=== PATIENT | male | born 1965 | race Caucasian/White ===

== ENCOUNTER 2017-03-30 23:38 | Emergency (ER) | payer MEDICAID, OTHER ==
[2017-03-30 23:46] VITALS: BMI 34.8
[2017-03-30 23:53] VITALS: TEMP 98.7
[2017-03-31] MEDS ORDERED: Nitroglycerin 2% Ointment Foilpak UD TOP STA (00:11)
[2017-03-31 00:20] LABS: BASO # 0.02 K/mm3 (0.0-2.0); BASO % 0.2 % (0.0-3.0); EOS % 0.1 % (1.5-5.0); GRAN # 7.94 (1.4-6.5); GRAN % 86.2 % (50.0-68.0); HEMATOCRIT 44.1 % (42.0-52.0); LYMPH # 1.1 (1.2-3.4); LYMPH % 12.1 % (22.0-35.0); MEAN CELL VOLUME 92.3 fl (80.0-105.0); MEAN CORPUSCULAR HEMOGLOBIN 31.8 pg (25.0-35.0); MEAN CORPUSCULAR HGB CONC 34.5 g/dl (31.0-37.0); MEAN PLATELET VOLUME 12.2 fl (7.0-11.0); MONO # 0.1 (0.1-0.6); MONO % 1.4 % (1.0-6.0); RED CELL DISTRIBUTION WIDTH 12.6 % (11.5-14.5); WHITE BLOOD COUNT 9.2 10^3/ul (4.5-11.0)
--- NOTE | 2017-03-31 00:24 | ED PDOC ---
Arrival/HPI - General Chief Complaint: Chest Pain Time Seen by Provider: 03/30/17 23:41 Historian: Patient - History of Present Illness Narrative History of Present Illness (Text): 03/31/17 00:23 A 51 year old male presents to the emergency department complaining of chest pain that started two hours ago. Patient reports he saw his PMD who gave him an injection to help him with breathing, unsure what injection. Patient denies any shortness of breath, nausea, vomiting, diarrhea or any other complaints at this time. Time/Duration: 1-3 hours Symptom Onset: Sudden Symptom Course: Unchanged Activities at Onset: Rest Context: Home Past Medical History - Provider Review Nursing Documentation Reviewed: Yes - Infectious Disease Hx of Infectious Diseases: None - Cardiac Hx Hypertension: Yes - Pulmonary Hx Respiratory Disorders: No - Neurological Hx Neurological Disorder: No - HEENT Hx HEENT Disorder: No - Renal Hx Renal Disorder: No - Endocrine/Metabolic Hx Diabetes Mellitus Type 2: Yes - Hematological/Oncological Hx Blood Disorders: No - Integumentary Hx Dermatological Disorder: No - Musculoskeletal/Rheumatological Hx Musculoskeletal Disorders: No - Gastrointestinal Hx Gastrointestinal Disorders: No - Genitourinary/Gynecological Hx Genitourinary Disorders: No - Psychiatric Hx Psychophysiologic Disorder: No Hx Substance Use: No - Anesthesia Hx Anesthesia: No Hx Anesthesia Reactions: No Hx Malignant Hyperthermia: No Family/Social History - Physician Review Nursing Documentation Reviewed: Yes Family/Social History: No Known Family HX Smoking Status: Heavy Smoker > 10 Cigarettes Daily Hx Alcohol Use: No Hx Substance Use: No Allergies/Home Meds Allergies/Adverse Reactions: Allergies No Known Allergies Allergy (Verified 12/11/15 21:20) Home Medications: Home Meds Medication Instructions Recorded Confirmed Albuterol/Ipratropium [Combivent 1 puff IH Q6 03/30/17 03/31/17 Respimat] Aspirin [Adult Low Dose Aspirin EC] 81 mg PO DAILY 03/30/17 03/30/17 Cholecalciferol (Vitamin D3) 50,000 unit PO QWK 03/30/17 03/30/17 [Vitamin D3] Fluticasone Propionate [Flovent 50 mcg IH DAILY 03/30/17 03/31/17 Diskus] Ibuprofen [Caldolor] 400 mg PO TID PRN 03/30/17 03/31/17 Losartan/Hydrochlorothiazide 1 each PO DAILY 03/30/17 03/30/17 [Losartan-Hctz 100-25 mg Tab] Metformin ER [Glucophage XR] 500 mg PO DAILY 03/30/17 03/30/17 Simvastatin [Zocor] 40 mg PO HS 03/30/17 03/30/17 amLODIPine [Norvasc] 5 mg PO DAILY 03/30/17 03/30/17 Review of Systems - Physician Review All systems were reviewed & negative as marked: Yes - Review of Systems Respiratory: absent: SOB Cardiovascular: Chest Pain Gastrointestinal: absent: Diarrhea, Nausea, Vomiting Physical Exam Vital Signs Reviewed: Yes Vital Signs Temp Pulse Resp BP Pulse Ox 03/31/17 01:14 108 H 18 115/63 98 03/30/17 23:49 98.7 F 118 H 19 131/75 97 Temperature: Afebrile Blood Pressure: Normal Pulse: Tachycardic Respiratory Rate: Normal Appearance: Positive for: Well-Appearing, Non-Toxic, Comfortable Pain Distress: None Mental Status: Positive for: Alert and Oriented X 3 - Systems Exam Head: Present: Atraumatic, Normocephalic Pupils: Present: PERRL Extroacular Muscles: Present: EOMI Conjunctiva: Present: Normal Mouth: Present: Moist Mucous Membranes Neck: Present: Normal Range of Motion Respiratory/Chest: Present: Clear to Auscultation, Good Air Exchange. No: Respiratory Distress, Accessory Muscle Use Cardiovascular: Present: Tachycardic Abdomen: Present: Normal Bowel Sounds. No: Tenderness, Distention, Peritoneal Signs Back: Present: Normal Inspection Upper Extremity: Present: Normal Inspection. No: Cyanosis, Edema Lower Extremity: Present: Normal Inspection. No: Edema Neurological: Present: GCS=15, CN II-XII Intact, Speech Normal Skin: Present: Warm, Dry, Normal Color. No: Rashes Psychiatric: Present: Alert, Oriented x 3, Normal Insight, Normal Concentration Medical Decision Making ED Course and Treatment: 03/31/17 00:22 Impression: A 51 year old male with chest pain. Differential Diagnosis included but are not limited to: r/o PE Plan: -- EKG -- chest xray -- labs -- Urinalysis -- Nitroglycerin, Aspirin, IV fluids -- Reassess and disposition Prior Visits: Notes and results from previous visits were reviewed. Patient was last seen in the emergency department on 12/11/15 for evaluation of left lateral ankle pain and swelling. Progress Notes: EKG: Ordered, reviewed, and independently interpreted the EKG. Rate : 115 BPM Rhythm : sinus tachycardia Interpretation : normal intervals. Comparison : No previous EKG for comparison. 03/31/17 02:30 Chest xray: No active disease, as read by me. Patient was seen by the medical appointment scheduler for admission, and during interview and exam, patient wanted to leave against medical advice and refused admission. Leaving Against Medical Advice (AMA): The patient is choosing to leave against medical advice. I have personally explained to the patient that choosing to do so may result in permanent bodily harm or . I have discussed at great length that without further evaluation and monitoring there may be unforeseen circumstances and/or deterioration causing permanent bodily harm or as a result of their choice. The patient is alert, oriented, and shows the mental capacity to make clear decisions regarding the patients health care at this time. The patient continues to wish to leave against medical advice. The patient has been advised that they should return to the emergency room immediately if they change their mind at any time, or if their condition begins to change or worsen in any way. - Lab Interpretations Lab Results: 03/31/17 00:08 03/31/17 00:08 Lab Results 03/31/17 00:08: PT 11.7, INR 1.07, APTT 32.9, D-Dimer, Quantitative < 200 03/31/17 00:08: Sodium 136, Potassium 3.4 L, Chloride 97 L, Carbon Dioxide 25, Anion Gap 17, BUN 21, Creatinine 1.1, Est GFR ( Amer) > 60, Est GFR (Non- Af Amer) > 60, Random Glucose 453 H*, Calcium 9.8, Magnesium 1.4 L, Total Bilirubin 0.8, AST 47, ALT 81 H, Alkaline Phosphatase 103, Lactate Dehydrogenase 509, Total Creatine Kinase 83, Troponin I < 0.01, Total Protein 8.0, Albumin 4.4, Globulin 3.6, Albumin/Globulin Ratio 1.2 03/31/17 00:08: WBC 9.2, RBC 4.78, Hgb 15.2, Hct 44.1, MCV 92.3, MCH 31.8, MCHC 34.5, RDW 12.6, Plt Count 178, MPV 12.2 H, Gran % 86.2 H, Lymph % (Auto) 12.1 L , [place] % (Auto) 1.4, Eos % (Auto) 0.1 L, Baso % (Auto) 0.2, Gran # 7.94 H, Lymph # 1.1 L, [place] # 0.1, Eos # 0.0, Baso # 0.02 I have reviewed the lab results: Yes - RAD Interpretation Radiology Orders: 03/31/17 00:13 CHEST PORTABLE [RAD] Stat - EKG Interpretation Interpreted by ED Physician: Yes Type: 12 lead EKG - Medication Orders Current Medication Orders: Discontinued Medications Aspirin (Ecotrin) 81 mg PO STAT STA Stop: 03/31/17 00:12 Last Admin: 03/31/17 00:23 Dose: Sodium Chloride (Sodium Chloride 0.9%) 1,000 mls @ 250 mls/hr IV .Q4H INGRID Last Admin: 03/31/17 00:43 Dose: 250 mls/hr eMAR Start Stop Document 03/31/17 00:43 AD (Rec: 03/31/17 00:43 AD [facility] [id number]) Intravenous Solution Start Date 03/31/17 Start Time 00:45 Nitroglycerin (Nitro-Bid 2% Oint) 1 ea TOP STAT STA Stop: 03/31/17 00:12 Last Admin: 03/31/17 00:23 Dose: 1 ea - Scribe Statement The provider has reviewed the documentation as recorded by the Latha Hagen Provider Scribe Attestation: All medical record entries made by the Scribe were at my direction and personally dictated by me. I have reviewed the chart and agree that the record accurately reflects my personal performance of the history, physical exam, medical decision making, and the department course for this patient. I have also personally directed, reviewed, and agree with the discharge instructions and disposition. Disposition/Present on Arrival - Present on Arrival Any Indicators Present on Arrival: No History of DVT/PE: No History of Uncontrolled Diabetes: No Urinary Catheter: No History of Decub. Ulcer: No History Surgical Site Infection Following: None - Disposition Have Diagnosis and Disposition been Completed?: Yes Diagnosis: Chest pain Disposition: AGAINST MEDICAL ADVICE Disposition Time: 02:30 Condition: GOOD Discharge Instructions (ExitCare): Chest Pain (ED) Referrals: Petar Vincent MD [Primary Care Provider] - Follow up with primary Forms: [employer] ([place]izen [place])
[2017-03-31 00:35] LABS: GLUCOSE,RANDOM 453 mg/dL (70-110)
[2017-03-31 00:36] LABS: ALB/GLOB RATIO 1.2 (1.1-1.8); ALKALINE PHOSPHATASE 103 U/L (38-126); ALT/SGPT 81 U/L (7-56); AST/SGOT 47 U/L (17-59); BILIRUBIN,TOTAL 0.8 mg/dL (0.2-1.3); BLOOD UREA NITROGEN 21 mg/dL (7-21); CALCIUM 9.8 mg/dL (8.4-10.5); CARBON DIOXIDE 25 mmol/L (21-33); CHLORIDE 97 mmol/L (98-107); GFR AFRICAN-AMERICAN > 60; MAGNESIUM 1.4 mg/dL (1.7-2.2); POTASSIUM 3.4 mmol/L (3.6-5.0); SODIUM 136 mmol/L (132-148)
[2017-03-31 00:41] LABS: TROPONIN I < 0.01 ng/mL
[2017-03-31 00:43] LABS: INR 1.07 (0.93-1.08)
[2017-03-31 00:44] LABS: D DIMER < 200 ng/mL (0-243); PARTIAL THROMBOPLASTIN TIME 32.9 Seconds (25.1-36.5)
[2017-03-31] MEDS ORDERED: Sodium Chloride 0.9% 1,000 ML IV SCH (00:45)
[2017-03-31 01:15] VITALS: BP 115/63; PULSE 108; RESP 18; O2SAT 98
--- NOTE | 2017-03-31 01:54 | CP.PCM.HP ---
History of Present Illness - History of Present Illness History of Present Illness: CC: chest pain Subjective: HPI: Patient is a 51 year old male with past medical history of who presents to the emergency department via EMS for evaluation and treatment of Patient denies specific provoking events. Denies recent travel and sick contacts. Patient denies intractable headache, fever, chills, dizziness, blurry vision, ringing in the ears, chest pain, shortness of breath, abdominal pain, nausea, vomiting, diarrhea, constipation, and urinary symptoms. ROS: 12 point review of systems negative except as indicated in HPI PMHx: PSHx: Family Hx: Social Hx: ETOH use, tobacco use, illicit drug use Medications: Please see medication reconciliation PMD: Pharmacy: Physical Examination: - Constitutional Appears: Non-toxic, No Acute Distress - Head Exam Head Exam: atraumatic, normocephalic - Eye Exam Eye Exam: Normal appearance, PERRL. absent: Scleral icterus - ENT Exam ENT Exam: Mucous Membranes Moist - Neck Exam Neck exam: Normal Inspection - Respiratory Exam Respiratory Exam: Normal Breathing Pattern - Cardiovascular Exam Cardiovascular Exam: +S1, +S2. absent: Gallop, JVD - GI/Abdominal Exam GI & Abdominal Exam: Normal Bowel Sounds, absent: Distended, Guarding, Pulsatile Mass, Rebound, Rigid - Extremities Exam Extremities exam: Negative for: calf tenderness - Neurological Exam Neurological exam: Patient is awake, alert, responds to verbal stimuli, answers questions appropriately, follows commands, and moves extremities past midline - Psychiatric Exam Psychiatric exam: Normal Affect, Normal Mood - Skin Skin Exam: warm and dry Assessment and Plan: Chest Pain - rule out ACS - EKG reviewed and appreciated - - cardiac enzymes q8h x 3, first troponins negative - lipid profile and A1C pending - consider cardiology consult pending patient's clinical course SIRS Criteria Met - not sepsis- no source - blood cultures x 2 - urine culture - IVF NS @ 75 - abx prophylactically Sepsis - greater than 2/4 SIRS criteria met in setting of infectious source - blood cultures x 2 - urine culture - IVF NS @ 75 - abx Acute on Chronic COPD Exacerbation - duobnebs q4 scheduled - solumedrol 40mg IV q12 - oxygen supplementation 2 L via NC - consider pulmonology consult pending clinical course - antibtiotics - abg reviewed and appreciated, repeat abg in AM Pneumonia - blood culture, sputum culture - consider pulmonology consult pending clinical course - antibtiotics - consider repeating CXR/ attaining chest CT pending patient clinical course Acute on Chronic CHF Exacerbation - HR and BP reviewed, trended, and appreciated - strict i and o - daily weight - lasix 40mg IV q12 - ECHO pending - previous ECHO reviewed and appreciated - consider repeating CXR/ attaining chest CT pending patient clinical course Atrial Fibrillation - HR and BP reviewed, trended, and appreciated - EKG reviewed and appreciated - rate control with - [id number] > 2 hence anticoagulation with - cardiac isoenzymes q8 x 3 - cardiology consulted- appreciate recommendations - consider cardiology consult pending patients clinical course Ethanol Abuse, Potential Withdrawal - CIWA - high risk fall precautions - ativan 1mg q6 prn withdrawl symptoms - consider adding librium or geodon if sxs are not controlled - multivitamin, thiamine, and folate supplement Elevated LFTs - avoid hepatotoxins - monitor closely via CMP - hepatits panel pending - HIV rapid screen pending UTI - blood cultures and urine cultures pending - c/w antibiotics GI Bleed - NPO - 2 large bore PIV - protonix 40 IV q12 - type and screen if transfusion is required - GI consulted- appreciate recommendations Nausea/Vomitting - zofran - IVF NS @ 75 - NPO Diarrhea, Colitis - probiotic - antibiotic - IVF NS @ 75 STEPHEN - creatinine and Bun reviewed, trended, and appreciated - avoid nephrotoxins - continue IVF NS @ 75 - consider nephrology consult pending patients clinical course STEPHEN on CKD - creatinine and Bun reviewed, trended, and appreciated - avoid nephrotoxins - continue IVF NS @ 75 - consider nephrology consult pending patients clinical course CKD on HD - creatinine and Bun reviewed, trended, and appreciated - avoid nephrotoxins - renal diet - nephrology consulted for management of HD Anemia - Hgb reviewed, trended, and appreciated - monitor closely via CBC - consider iron, tibc, ferritin, peripheral smear pending patients clinical course Electrolyte Abnormality - repleted and monitor closely via CMP Hx of CAD - c/w aspirin - c/w statin Hx of Htn - c/w - hydralazine 5mg IV q6 prn SBP > 180, holding parameters- do not administer if HR is > 100 bpm Hx of Hyperlipidemia - c/w statin - lipid profile pending Hx of Diabetes - hold home diabetic medications - fingersticks ACHS - insulin sliding scale- lispro medium - resume diet as carb consistent Tobacco Abuse - nicotine patch offered - smoking cessation advised - patient education provided on dangers of tobacco abuse Prophylaxis - DVT ppx- subq heparin as per ayo score - GI ppx- famotidine Patient case discussed with and plan approved by attending physician. 03/31/17 01:54 Past Patient History - Infectious Disease Hx of Infectious Diseases: None - Past Social History Smoking Status: Heavy Smoker > 10 Cigarettes Daily - CARDIAC Hx Hypertension: Yes - PULMONARY Hx Respiratory Disorders: No - NEUROLOGICAL Hx Neurological Disorder: No - HEENT Hx HEENT Problems: No - RENAL Hx Chronic Kidney Disease: No - ENDOCRINE/METABOLIC Hx Diabetes Mellitus Type 2: Yes - HEMATOLOGICAL/ONCOLOGICAL Hx Blood Disorders: No - INTEGUMENTARY Hx Dermatological Problems: No - MUSCULOSKELETAL/RHEUMATOLOGICAL Hx Musculoskeletal Disorders: No - GASTROINTESTINAL Hx Gastrointestinal Disorders: No - GENITOURINARY/GYNECOLOGICAL Hx Genitourinary Disorders: No - PSYCHIATRIC Hx Psychophysiologic Disorder: No Hx Substance Use: No - SURGICAL HISTORY Hx Surgeries: No - ANESTHESIA Hx Anesthesia: No Hx Anesthesia Reactions: No Hx Malignant Hyperthermia: No Meds Allergies/Adverse Reactions: Allergies Allergy/AdvReac Type Severity Reaction Status Date / Time No Known Allergies Allergy Verified 12/11/15 21:20 Results - Vital Signs Recent Vital Signs: Last Vital Signs Temp 98.7 F 03/30/17 23:49 Pulse 108 H 03/31/17 01:14 Resp 18 03/31/17 01:14 BP 115/63 03/31/17 01:14 Pulse Ox 98 03/31/17 01:14 - Labs Result Diagrams: 03/31/17 00:08 03/31/17 00:08 Labs: Laboratory Results - last 24 hr 03/31/17 03/31/17 03/31/17 00:08 00:08 00:08 WBC 9.2 RBC 4.78 Hgb 15.2 Hct 44.1 MCV 92.3 MCH 31.8 MCHC 34.5 RDW 12.6 Plt Count 178 MPV 12.2 H Gran % 86.2 H Lymph % (Auto) 12.1 L [place] % (Auto) 1.4 Eos % (Auto) 0.1 L Baso % (Auto) 0.2 Gran # 7.94 H Lymph # 1.1 L [place] # 0.1 Eos # 0.0 Baso # 0.02 PT 11.7 INR 1.07 APTT 32.9 D-Dimer, Quantitative < 200 Sodium 136 Potassium 3.4 L Chloride 97 L Carbon Dioxide 25 Anion Gap 17 BUN 21 Creatinine 1.1 Est GFR ( Amer) > 60 Est GFR (Non-Af Amer) > 60 Random Glucose 453 H* Calcium 9.8 Magnesium 1.4 L Total Bilirubin 0.8 AST 47 ALT 81 H Alkaline Phosphatase 103 Lactate Dehydrogenase 509 Total Creatine Kinase 83 Troponin I < 0.01 Total Protein 8.0 Albumin 4.4 Globulin 3.6 Albumin/Globulin Ratio 1.2
--- NOTE | 2017-03-31 08:03 | RAD ---
HISTORY: cp COMPARISON: No prior. FINDINGS: LUNGS: No active pulmonary disease. PLEURA: No significant pleural effusion identified, no pneumothorax apparent. CARDIOVASCULAR: Normal. OSSEOUS STRUCTURES: No significant abnormalities. VISUALIZED UPPER ABDOMEN: Normal. OTHER FINDINGS: None. IMPRESSION: No active disease.
--- NOTE | 2017-03-31 09:52 | CARD ---
APPROVED REPORT EKG Measurement Heart [id number] <Conclusion> Sinus tachycardia Possible Left atrial enlargement ST abnormality, possible digitalis effect Abnormal ECG
== END 2017-03-31 02:30 | disposition left against medical advice (07) ==
LOC: ED 23:38
DX: R07.9 Chest pain, unspecified (principal); I10 Essential (primary) hypertension; E11.9 Type 2 diabetes mellitus without complications; F17.210 Nicotine dependence, cigarettes, uncomplicated
CPT/HCPCS: 71010; 80053; 82550; 83615; 83735; 84484; 85025; 85378; 85610; 85730; 93005; 99284; J7040

== ENCOUNTER 2018-02-06 08:27 | Emergency (ER) | payer OTHER ==
[2018-02-06 09:24] VITALS: BMI 34.0
[2018-02-06 09:49] VITALS: TEMP 98.3
--- NOTE | 2018-02-06 10:29 | ED PDOC ---
Arrival/HPI - History of Present Illness Narrative History of Present Illness (Text): 02/06/18 10:22 Pt is a 52 yo M with pmhx of HTN, HLD, and DMII who presents for a foreign body in the eye. He states that he was working with some metal yesterday when he got a particle in his L eye. He states that he vigorously irrigated the eye, and put in eye drops last night. He denies wearing any safety glasses when working with the metal. He denies any changes in vision, but does admit to eye irritation and pain. He states that he feels as if something is still in his eye. He also admits to photophobia and L sided headache. He denies wearing contacts, seeing floaters, or loss of vision. Pmhx: HLD, HTN, DMII Pshx: B/l cataract surgery 2016 All: NKDA Soc: 2ppd for 30 years, social etoh use, denies any illicit drug use Fam Hx: Denies Time/Duration: < week Symptom Onset: Sudden Symptom Course: Worsening Severity Level: 6 <Kasie Feliz - Last Filed: 02/06/18 10:55> <Praveen Kaufman - Last Filed: 02/06/18 12:22> - General Time Seen by Provider: 02/06/18 08:45 Past Medical History - Provider Review Nursing Documentation Reviewed: Yes - Infectious Disease Hx of Infectious Diseases: None - Cardiac Hx Hypertension: Yes - Pulmonary Hx Respiratory Disorders: No - Neurological Hx Neurological Disorder: No - HEENT Hx HEENT Disorder: No - Renal Hx Renal Disorder: No - Endocrine/Metabolic Hx Diabetes Mellitus Type 2: Yes - Hematological/Oncological Hx Blood Disorders: No - Integumentary Hx Dermatological Disorder: No - Musculoskeletal/Rheumatological Hx Musculoskeletal Disorders: No - Gastrointestinal Hx Gastrointestinal Disorders: No - Genitourinary/Gynecological Hx Genitourinary Disorders: No - Psychiatric Hx Psychophysiologic Disorder: No Hx Substance Use: No - Surgical History Hx Eye Surgery: Yes (changed lenses) - Anesthesia Hx Anesthesia: Yes Hx Anesthesia Reactions: No Hx Malignant Hyperthermia: No <Kasie Feliz - Last Filed: 02/06/18 10:55> Family/Social History - Physician Review Nursing Documentation Reviewed: Yes Family/Social History: No Known Family HX Smoking Status: Heavy Smoker > 10 Cigarettes Daily Hx Alcohol Use: No Hx Substance Use: No <Kasie Feliz - Last Filed: 02/06/18 10:55> Allergies/Home Meds <Kasie Feliz - Last Filed: 02/06/18 10:55> <Praveen Kaufman - Last Filed: 02/06/18 12:22> Allergies/Adverse Reactions: Allergies No Known Allergies Allergy (Verified 12/11/15 21:20) Home Medications: Home Meds Medication Instructions Recorded Confirmed Albuterol/Ipratropium [Combivent 1 puff IH Q6 03/30/17 03/31/17 Respimat] Aspirin [Adult Low Dose Aspirin EC] 81 mg PO DAILY 03/30/17 03/30/17 Cholecalciferol (Vitamin D3) 50,000 unit PO QWK 03/30/17 03/30/17 [Vitamin D3] Fluticasone Propionate [Flovent 50 mcg IH DAILY 03/30/17 03/31/17 Diskus] Ibuprofen [Caldolor] 400 mg PO TID PRN 03/30/17 03/31/17 Losartan/Hydrochlorothiazide 1 each PO DAILY 03/30/17 03/30/17 [Losartan-Hctz 100-25 mg Tab] MetFORMIN ER [Glucophage XR] 500 mg PO DAILY 03/30/17 03/30/17 Simvastatin [Zocor] 40 mg PO HS 03/30/17 03/30/17 amLODIPine [Norvasc] 5 mg PO DAILY 03/30/17 03/30/17 Review of Systems - Physician Review All systems were reviewed & negative as marked: Yes - Review of Systems Eyes: Photophobia (L sided). absent: Vision Changes, Eye Pain Respiratory: absent: SOB, Cough Cardiovascular: absent: Chest Pain, Palpitations Gastrointestinal: absent: Abdominal Pain, Nausea, Vomiting Neurological: Headache (L sided headache) <Kasie Feliz - Last Filed: 02/06/18 10:55> Physical Exam Vital Signs Reviewed: Yes Vital Signs Temp Pulse Resp BP Pulse Ox 02/06/18 09:48 98.3 F 91 H 18 106/62 96 Temperature: Afebrile Blood Pressure: Normal Pulse: Regular Respiratory Rate: Normal Appearance: Positive for: Well-Appearing, Non-Toxic Pain Distress: Mild Mental Status: Positive for: Alert and Oriented X 3 - Systems Exam Head: Present: Atraumatic, Normocephalic Pupils: Present: PERRL Extroacular Muscles: Present: EOMI. No: Gaze Palsy, Entrapment Conjunctiva: Present: Injected, Other (fluorescein slit lamp test performed, no corneal abrasions noted on exam. Upper and lower eye lid were also examined for the presence of any foreign body and none were seen.). No: Icteric Respiratory/Chest: Present: Clear to Auscultation, Good Air Exchange. No: Respiratory Distress, Accessory Muscle Use, Wheezes, Rales, Rhonchi Cardiovascular: Present: Regular Rate and Rhythm, Normal S1, S2. No: Murmurs, Rub, Gallop Abdomen: Present: Normal Bowel Sounds. No: Tenderness, Distention, Peritoneal Signs, Rebound, Guarding Lower Extremity: Present: Normal Inspection, NORMAL PULSES, Capillary Refill < 2 s. No: Edema, CALF TENDERNESS, Autumn's Sign, Tenderness Neurological: Present: GCS=15, Speech Normal, Motor Func Grossly Intact, Normal Sensory Function Skin: Present: Warm, Dry, Normal Color. No: Rashes Psychiatric: Present: Alert, Oriented x 3, Normal Insight, Normal Concentration, Normal Affect, Normal Mood <Kasie Feliz - Last Filed: 02/06/18 10:55> Vital Signs Temp Pulse Resp BP Pulse Ox 02/06/18 10:37 88 16 110/70 99 02/06/18 09:48 98.3 F 91 H 18 106/62 96 <Praveen Kaufman - Last Filed: 02/06/18 12:22> Medical Decision Making ED Course and Treatment: 02/06/18 10:54 Pt is a 52 yo M with pmhx detailed above who presents for foreign body in L eye. - Tetracaine eye drops - Fluorescein slit lamp test - Call Opthomalogy 02/06/18 10:59 - Spoke to defence intelligence analyst who recommended patient to come to his office - Fluorescein slit lamp test was preformed and no abrasions noted on exam - Discussed with pt that defence intelligence analyst recommended immediate follow up in his office and to go straight from ED to ophthalmology office <Kasie Feliz - Last Filed: 02/06/18 10:55> ED Course and Treatment: 02/06/18 11:06 52 year old male presents to the Emergency department complaining of irritation to left eye secondary to possible foreign body. No abx at this time per ophtho, to be seen in the office. No appreciable foreign body on my exam. No retinal tear on my exam. No indication of glaucoma: No cloudy or hazy eye, no fixed pupil. Normal vision, 20/20 b/l. No trauma to orbit or proptosis to eye. No corneal ulcer. No hyphema or pus to anterior chamber. To be seen by ophtho. In agreement with resident note which contains more details about the patient. Patient seen and evaluated with resident. Came up with plan and treatment together. <Praveen Kaufman - Last Filed: 02/06/18 12:22> - PA / ACID BLEACHER / Resident Statement / has reviewed & agrees with the documentation as recorded. MD/ has examined the patient and agrees with the treatment plan. - Scribe Statement The provider has reviewed the documentation as recorded by the Scribe Giselle Haddad. All medical record entries made by the Scribe were at my direction and personally dictated by me. I have reviewed the chart and agree that the record accurately reflects my personal performance of the history, physical exam, medical decision making, and the department course for this patient. I have also personally directed, reviewed, and agree with the discharge instructions and disposition. <Praveen Kaufman - Last Filed: 02/06/18 12:22> Disposition/Present on Arrival - Present on Arrival Any Indicators Present on Arrival: No History of DVT/PE: No History of Uncontrolled Diabetes: No Urinary Catheter: No History of Decub. Ulcer: No History Surgical Site Infection Following: None - Disposition Have Diagnosis and Disposition been Completed?: Yes Disposition Time: 10:50 Patient Plan: Discharge (with immediate follow up with defence intelligence analyst as discussed with pt) <Kasie Feliz - Last Filed: 02/06/18 10:55> <Praveen Kaufman - Last Filed: 02/06/18 12:22> - Disposition Diagnosis: Foreign body in eye Disposition: HOME/ ROUTINE Condition: STABLE Discharge Instructions (ExitCare): Foreign Body in Eye Additional Instructions: - Please follow up with defence intelligence analyst Dr. Chua who will see you in his office today as soon as you are discharged. The office is located at [address] [place] [address], [facility]. - If any of your symptoms worsen before or after the appointment, or if any new symptoms begin please return to the Emergency Department. Referrals: Sebastian Chua MD [Staff Provider] - Follow up with primary Forms: [employer] (Vincentian)
[2018-02-06 10:38] VITALS: BP 110/70; PULSE 88; RESP 16; O2SAT 99
== END 2018-02-06 10:38 | disposition home or self-care (01) ==
LOC: ED 08:27
DX: T15.92XA Foreign body on external eye, part unspecified, left eye, initial encounter (principal); X58.XXXA Exposure to other specified factors, initial encounter; Y92.9 Unspecified place or not applicable

== ENCOUNTER 2018-09-17 11:02 | Emergency (ER) | payer OTHER ==
[2018-09-17 11:03] VITALS: BMI 33.6
[2018-09-17] MEDS ORDERED: Sodium Chloride 0.9% 1,000 ML IV STA (12:05)
[2018-09-17] MEDS ORDERED: Piperacill/Tazo 4.5gm in NS 4.5 GM/100 ML BAG IVPB STA (12:07)
--- NOTE | 2018-09-17 12:13 | ED PDOC ---
Arrival/HPI - General Chief Complaint: Headache Time Seen by Provider: 09/17/18 11:25 Historian: Patient - History of Present Illness Narrative History of Present Illness (Text): 09/17/18 12:05 53 year old male, with past medical history of diabetes, hypertension, and hyperlipidemia presents to emergency department for left-sided facial pain and swelling that began three days ago. Patient reports it initially began as swelling under his eyebrow but spread to the side of the face and under the eye this morning. He describes the pain as constant. He notes no difficulty moving his neck or opening and closing the jaw. Patient also states usual glucose levels are in the 140s. Patient denies any fevers, chills, shortness of breath, chest pain, abdominal pain, or any other complaints. Denies any recent travel and notes up to date immunizations. PMD: Time/Duration: Other (3 days ) Symptom Onset: Gradual Symptom Course: Unchanged Activities at Onset: Light Context: Home Past Medical History - Provider Review Nursing Documentation Reviewed: Yes - Infectious Disease Hx of Infectious Diseases: None - Cardiac Hx Cardiac Disorders: Yes Hx Hypertension: Yes - Pulmonary Hx Respiratory Disorders: No - Neurological Hx Neurological Disorder: No - HEENT Hx HEENT Disorder: Yes Hx Blind: Yes - Renal Hx Renal Disorder: No - Endocrine/Metabolic Hx Endocrine Disorders: Yes Hx Diabetes Mellitus Type 2: Yes - Hematological/Oncological Hx Blood Disorders: No - Integumentary Hx Dermatological Disorder: No - Musculoskeletal/Rheumatological Hx Musculoskeletal Disorders: No - Gastrointestinal Hx Gastrointestinal Disorders: No - Genitourinary/Gynecological Hx Genitourinary Disorders: No - Psychiatric Hx Psychophysiologic Disorder: No Hx Substance Use: No - Surgical History Hx Cataract Extraction: Yes Hx Eye Surgery: Yes (changed lenses) Hx Tonsillectomy: Yes - Anesthesia Hx Anesthesia: Yes Hx Anesthesia Reactions: No Hx Malignant Hyperthermia: No Family/Social History - Physician Review Nursing Documentation Reviewed: Yes Family/Social History: No Known Family HX Smoking Status: Current Some Days Smoker Hx Alcohol Use: No Hx Substance Use: No Allergies/Home Meds Allergies/Adverse Reactions: Allergies No Known Allergies Allergy (Verified 12/11/15 21:20) Home Medications: Home Meds Medication Instructions Recorded Confirmed Aspirin [Adult Low Dose Aspirin EC] 81 mg PO DAILY 03/30/17 03/08/18 Cholecalciferol (Vitamin D3) 50,000 unit PO QWK 03/30/17 03/08/18 [Vitamin D3] MetFORMIN ER [Glucophage XR] 500 mg PO DAILY 03/30/17 03/08/18 Simvastatin [Zocor] 40 mg PO HS 03/30/17 03/08/18 amLODIPine [Norvasc] 5 mg PO DAILY 03/30/17 09/17/18 Cyclobenzaprine [Flexeril] 5 mg PO DAILY 09/17/18 09/17/18 Lisinopril [Prinivil] 5 mg PO DAILY 09/17/18 09/17/18 Review of Systems - Physician Review All systems were reviewed & negative as marked: Yes - Review of Systems Respiratory: absent: SOB Cardiovascular: absent: Chest Pain Physical Exam - Physical Exam Narrative Physical Exam (Text): 09/17/18 12:15 Constitutional: No acute distress. Head: Normocephalic. Atraumatic. Eyes: EOMI without pain, edema to left eyebrow and periorbital ENT: Moist mucous membranes, tenderness and erythema to left parotid area Neck: Supple. Cardiovascular: Regular rate. Chest: No tenderness. Respiratory: Clear to auscultation bilaterally. GI: Soft. Nontender. Nondistended. Back: No CVA tenderness. Musculoskeletal: No tenderness or swelling of extremities. Skin: No rash. Neurologic: Alert, no focal deficit. Vital Signs Reviewed: Yes Vital Signs Temp Pulse Resp BP Pulse Ox 09/17/18 11:18 98.0 F 91 H 18 115/77 98 Temperature: Afebrile Blood Pressure: Normal Pulse: Regular Respiratory Rate: Normal Appearance: Positive for: Well-Appearing, Non-Toxic, Comfortable Pain Distress: None Mental Status: Positive for: Alert and Oriented X 3 Medical Decision Making ED Course and Treatment: 09/17/18 12:13 Impression: 53 year old male presents to emergency department for left-sided facial swelling that began three days ago. Plan: -- CT Maxillofacial -- Labs -- IV Fluids -- Zosyn -- Urinalysis -- Reassess and disposition 09/17/18 16:46 FINDINGS: NASAL BONES: Unremarkable. ORBITS: Focal trace left supraorbital soft tissue swelling. PARANASAL SINUSES/ MASTOIDS: Clear. MAXILLA: Unremarkable. MANDIBLE/ TEMPOROMANDIBULAR JOINTS: Unremarkable. SKULL BASE: Unremarkable. TEMPORAL BONES: Middle ears and mastoid grossly unremarkable. OTHER FINDINGS: None. IMPRESSION: Unremarkable contrast enhanced CT of the maxillofacial bones. Patient in no distress. Discharged home, f/u PMD, instructed to return to ED for worsening pain, fever, vomiting, stiff neck, chills, worsening edema, or any other problem. - Scribe Statement The provider has reviewed the documentation as recorded by the Scribe Kandi Montoya All medical record entries made by the Scribe were at my direction and personally dictated by me. I have reviewed the chart and agree that the record accurately reflects my personal performance of the history, physical exam, medical decision making, and the department course for this patient. I have also personally directed, reviewed, and agree with the discharge instructions and disposition. Disposition/Present on Arrival - Present on Arrival Any Indicators Present on Arrival: No History of DVT/PE: No History of Uncontrolled Diabetes: No Urinary Catheter: No History of Decub. Ulcer: No History Surgical Site Infection Following: None - Disposition Have Diagnosis and Disposition been Completed?: Yes Diagnosis: Periorbital cellulitis Disposition: HOME/ ROUTINE Disposition Time: 14:17 Patient Plan: Discharge Condition: GOOD Discharge Instructions (ExitCare): Cellulitis (ED) Prescriptions: Amoxicillin/Clavulanate [Augmentin 875 MG-125 MG] 1 tab PO BID #20 tab Referrals: Petar Vincent MD [Primary Care Provider] - Follow up with primary Forms: [employer] (Italian)
[2018-09-17 12:50] LABS: CALCIUM 9.3 mg/dL (8.4-10.5)
[2018-09-17 12:59] LABS: ALB/GLOB RATIO 1.3 (1.1-1.8); ALBUMIN 4.7 g/dL (3.0-4.8); ALT/SGPT 168 U/L (7-56); AST/SGOT 87 U/L (17-59); BLOOD UREA NITROGEN 18 mg/dL (7-21); GFR NON-AFRICAN AMERICAN > 60
[2018-09-17 13:02] LABS: URINE BILIRUBIN NEGATIVE (NEGATIVE); URINE BLOOD NEGATIVE (NEGATIVE); URINE GLUCOSE (UA) NEGATIVE (NEGATIVE); URINE LEUKOCYTE ESTERASE NEGATIVE Leu/uL (NEGATIVE); URINE PROTEIN NEGATIVE mg/dL (<30 mg/dL); URINE UROBILINOGEN 0.2 E.U./dL (<1 E.U./dL)
[2018-09-17 13:04] LABS: BASO # 0.06 K/mm3 (0.0-2.0); BASO % 0.6 % (0.0-3.0); EOS # 0.5 (0.0-0.7); EOS % 5.2 % (1.5-5.0); HEMOGLOBIN 15.6 g/dL (14.0-18.0); LYMPH # 3.8 (1.2-3.4); LYMPH % 37.6 % (22.0-35.0); MEAN CELL VOLUME 92.4 fl (80.0-105.0); MEAN CORPUSCULAR HEMOGLOBIN 31.1 pg (25.0-35.0); MEAN CORPUSCULAR HGB CONC 33.6 g/dl (31.0-37.0); MEAN PLATELET VOLUME 11.3 fl (7.0-11.0); MONO # 0.5 (0.1-0.6); MONO % 4.5 % (1.0-6.0); RBC 5.02 10^6/uL (3.5-6.1); RED CELL DISTRIBUTION WIDTH 12.6 % (11.5-14.5)
[2018-09-17 13:06] LABS: URINE APPEARANCE CLEAR (CLEAR); URINE COLOR YELLOW (YELLOW)
[2018-09-17] MEDS ORDERED: Iohexol 350 MG/100 ML VIAL ONE (13:51)
--- NOTE | 2018-09-17 14:12 | CT ---
Date of service: 09/17/2018 PROCEDURE: CT MAXILLOFACIAL BONES WITH CONTRAST HISTORY: erythema, swelling to L eye, jaw COMPARISON: None. TECHNIQUE: Contiguous axial CT images of the maxillofacial bones were obtained following administration of IV contrast. Coronal and sagittal reformats were generated. Intravenous contrast Dose: 100 mL Omnipaque 350 Radiation dose: Total exam DLP = 826.56 mGy-cm. This CT exam was performed using one or more of the following dose reduction techniques: Automated exposure control, adjustment of the mA and/or kV according to patient size, and/or use of iterative reconstruction technique. FINDINGS: NASAL BONES: Unremarkable. ORBITS: Focal trace left supraorbital soft tissue swelling. PARANASAL SINUSES/ MASTOIDS: Clear. MAXILLA: Unremarkable. MANDIBLE/ TEMPOROMANDIBULAR JOINTS: Unremarkable. SKULL BASE: Unremarkable. TEMPORAL BONES: Middle ears and mastoid grossly unremarkable. OTHER FINDINGS: None. IMPRESSION: Unremarkable contrast enhanced CT of the maxillofacial bones.
[2018-09-17 14:30] VITALS: BP 118/73; PULSE 74; RESP 14; TEMP 98.3; O2SAT 100
== END 2018-09-17 14:28 | disposition home or self-care (01) ==
LOC: ED 11:02
DX: L03.213 Periorbital cellulitis (principal); I10 Essential (primary) hypertension; E11.9 Type 2 diabetes mellitus without complications; E78.5 Hyperlipidemia, unspecified; F17.210 Nicotine dependence, cigarettes, uncomplicated
CPT/HCPCS: 70488; 80053; 81003; 85025; 87040; 87086; 87181; 96365; 99285; J2543; J7030; Q9967